=== PATIENT | male | born 1990 | race Caucasian/White ===

== ENCOUNTER 2018-10-12 15:56 | Emergency (ER) | payer BC ==
[~2018-10-12] VITALS: Ht 188 cm; Wt 86.2 kg
[2018-10-12 16:04] VITALS: BP 130/70
--- NOTE | 2018-10-12 16:04 | NUR ---
TO BED # 5 VIA W/C, REPORT GIVEN TO KELLEY SALVADOR
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
--- NOTE | 2018-10-12 16:15 | NUR ---
X RAY AT BEDSIDE.
[2018-10-12] MEDS ORDERED: KETOROLAC 60 MG/2 ML VIAL IM ONE (16:50)
[2018-10-12] MEDS ORDERED: traMADol 50 MG TAB PO ONE (16:50)
--- NOTE | 2018-10-12 17:10 | NUR ---
MOTHER AT BEDSIDE.
--- NOTE | 2018-10-12 17:25 | NUR ---
X RAY AT BEDSIDE.
[2018-10-12 17:59] VITALS: BP 127/83
--- NOTE | 2018-10-12 17:59 | NUR ---
Patient discharged with v/s stable. Written and verbal after care instructions given and explained. Patient alert, oriented and verbalized understanding of instructions. Ambulatory with CRUTCHES All questions addressed prior to discharge. ID band removed. Patient advised to follow up with PMD. Rx of KETOROLAC & TRAMADOL given. Patient educated on indication of medication including possible reaction and side effects. Opportunity to ask questions provided and answered.
== END 2018-10-12 17:59 | disposition home or self-care (01) ==
LOC: MED 15:56
DX: S92.152A Displaced avulsion fracture (chip fracture) of left talus, initial encounter for closed fracture (principal); S92.252A Displaced fracture of navicular [scaphoid] of left foot, initial encounter for closed fracture; Z88.0 Allergy status to penicillin; V03.90XA Pedestrian on foot injured in collision with car, pick-up truck or van, unspecified whether traffic or nontraffic accident, initial encounter; Y93.89 Activity, other specified; Y92.89 Other specified places as the place of occurrence of the external cause; Y99.8 Other external cause status
CPT/HCPCS: 29515; 73590; 73610; 73630; 99283; Q0092; J1885

== ENCOUNTER 2019-01-19 14:44 | Inpatient (IN) | payer BC ==
[~2019-01-19] VITALS: Ht 188 cm; Wt 86.2 kg
[2019-01-19 14:50] VITALS: BP 123/79
--- NOTE | 2019-01-19 14:50 | NUR ---
BIBA FOR "ALCOHOL WITHDRAWALS," MOM CALLED EMS BECAUSE SAW HIM DRINKING A BIG GULP FULL OF VODKA. PT VISIBLY INTOXICATED. UNABLE TO VERBALIZE PAIN. REQUESTING "BANANA PACK" HX: CELIAC DISEASE, ETOH RX: TORADOL, BUSPAR, TRAMADOL
[2019-01-19] MEDS ORDERED: NACL 0.9% 1,000 ML IV ONE (14:55)
[2019-01-19 15:08] LABS: BASOPHILS # (AUTO) 0.1 K/uL (0.00-0.22); BASOPHILS % (AUTO) 0.7 % (0.0-2.0); EOSINOPHILS # (AUTO) 0.1 K/uL (0-0.4); EOSINOPHILS % (AUTO) 0.5 % (0.0-4.0); HEMATOCRIT 52.5 % (36-52); HEMOGLOBIN 18.2 g/dL (12.0-18.0); LYMPHOCYTES # (AUTO) 2.5 K/uL (2.0-11.5); LYMPHOCYTES % (AUTO) 26.3 % (20.5-51.1); MEAN CORPUSCULAR HEMOGLOBIN 30 pg (27-31); MEAN CORPUSCULAR HGB CONC 35 g/dL (33-37); MEAN CORPUSCULAR VOLUME 86.7 fL (80-94); MONOCYTES # (AUTO) 0.4 K/uL (0.8-1.0); MONOCYTES % (AUTO) 4.6 % (1.7-9.3); NEUTROPHILS # (AUTO) 6.4 K/uL (1.8-7.7); NEUTROPHILS % (AUTO) 67.9 % (42.2-75.2); PLATELET COUNT (AUTO) 156 K/uL (140-450); RED BLOOD CELL COUNT(AUTO) 6.06 MIL/uL (4.20-6.10); RED CELL DISTRIBUTION WIDTH 13.6 % (11.6-13.7); WHITE BLOOD COUNT (AUTO) 9.4 K/uL (4.8-10.8)
[2019-01-19] MEDS ORDERED: ONDANSETRON 4 MG/2 ML VIAL IVP ONE (15:25)
[2019-01-19 15:30] LABS: ANION GAP 14.1 (8-16); CARBON DIOXIDE 28.5 mmol/L (21-32); CREATININE 1.1 mg/dL (0.7-1.3); POTASSIUM 3.6 mmol/L (3.5-5.1); TOTAL BILIRUBIN 0.5 mg/dL (0.0-1.0)
[2019-01-19] MEDS ORDERED: DOCUSATE SODIUM 100 MG GELCAP PO PRN (16:05)
[2019-01-19] MEDS ORDERED: ACETAMINOPHEN 325 MG TAB PO PRN (16:05)
[2019-01-19 16:32] LABS: APPEARANCE,URINE CLEAR (CLEAR); BILIRUBIN,URINE NEGATIVE (NEGATIVE); BLOOD, URINE NEGATIVE (NEGATIVE); COLOR,URINE YELLOW (YELLOW); LEUKOCYTE ESTERASE ,URINE NEGATIVE (NEGATIVE); NITRITE, URINE NEGATIVE (NEGATIVE); UGLUCOSE NEGATIVE (NEGATIVE)
[2019-01-19 16:43] LABS: BARBITURATE, URINE NEG. ng/ml (NEG <=200); BENZODIAZEPINE, URINE NEG. ng/mL (NEG <=200); CANNABINOID, URINE NEG. ng/mL (NEG <=50); COCAINE, URINE NEG. ng/mL (NEG <=300); OPIATE, URINE NEG. ng/mL (NEG <=2000); PHENCYCLIDINE SCREEN,URINE NEG. ng/mL (NEG <=25)
--- NOTE | 2019-01-19 16:44 | NUR ---
PT TAKEN TO TELE FLOOR BY MODESTO LUONG AND EMT MILLIE
[2019-01-19 16:45] VITALS: BP 115/73
--- NOTE | 2019-01-19 16:45 | NUR ---
RECEIVED BEDSIDE REPORT FROM ER NURSE. PT STABLE, AWAKE, AND ALERT AND ORIENTED X4. NO SIGNS OF DISTRESS NOTED. DENIES PAIN OR SOB. NO REDNESS, SWELLING, OR INFLAMMATION NOTED ON IV SITE. CALL LARIOS WITHIN REACH. BED IN LOWEST POSITION. SAFETY MEASURES IN PLACE. PLAN OF CARE REVIEWED.
--- NOTE | 2019-01-19 16:45 | NUR ---
Patient will be admitted to care of DR. SIM. Admited to TELE. Will go to room 120A. Belongings list completed. Report to ALLISON PULLIAM RN.
[2019-01-19 17:11] LABS: PROTHROMBIN TIME 8.5 secs (10.8-13.4)
[2019-01-19 17:17] LABS: MAGNESIUM 2.2 mg/dL (1.8-2.4); PHOSPHORUS 2.8 mg/dL (2.5-4.9); THYROID STIMULATING HORMONE 1.24 uIU/mL (0.34-3.74)
[2019-01-19] MEDS ORDERED: HYDROcodone/APAP 5/325 MG 1 TAB TAB PO PRN (17:25)
[2019-01-19] MEDS ORDERED: LORazepam 2 MG/ML VIAL ONE (17:40)
[2019-01-19] MEDS ORDERED: chlordiazePOXIDE 25 MG CAP ONE (17:42)
[2019-01-19] MEDS: LORazepam 2 MG/ML VIAL IM/IVP PRN ×3 (17:45→22:55)
[2019-01-19] MEDS ORDERED: chlordiazePOXIDE 25 MG CAP PO SCH (18:30)
[2019-01-19] MEDS: NACL 0.9% 1,000 ML IV SCH (18:44)
--- NOTE | 2019-01-19 18:50 | NUR ---
ADMINISTERED SCHEDULED MEDICATION AND PRN ATIVAN FOR COMPLAINT OF ANXIETY. PT TOLERATED WELL. Addendum: 01/19/19 at 1957 by Princess Velazquez RN ACTUAL TIME GIVEN FOR PRN ATIVAN IS 565.
[2019-01-19] MEDS ORDERED: MULTIVITAMIN-12 10 ML, THIAMINE 100 MG, FOLIC ACID 1 MG in NACL 0.9% 1,000 ML IV SCH (19:00)
[2019-01-19] MEDS ORDERED: MAG SULF 2000 MG/WATER PREMIX 50 ML IV SCH (19:00)
--- NOTE | 2019-01-19 19:30 | NUR ---
ENDORSED PT TO MODESTO PEDRAZA FOR CONTINUITY OF CARE. PT STABLE, SLEEPING, BUT EASILY AROUSABLE.
--- NOTE | 2019-01-19 19:31 | NUR ---
REPORT RECEIVED FROM AM NURSE AT BEDSIDE. PT IN STABLE CONDITION. AAOX4. INTRODUCED SELF TO PT. BOARD UPDATED. NO COMPLAINTS OF PAIN. NO SOB. AFEBRILE. IV SITE L FA 20G RUNNING NS@100ML/HR PATENT AND INTACT. SKIN WARM, DRY, AND INTACT WITH NO OPEN WOUNDS. BED LOCKED IN LOW POSITION. CALL LARIOS WITHIN REACH. SAFETY PRECAUTIONS IN PLACE. ALL NEEDS MET AT THIS TIME.
[2019-01-19] MEDS: ONDANSETRON 4 MG/2 ML VIAL IM/IVP PRN (19:43)
--- NOTE | 2019-01-19 19:43 | NUR ---
ZOFRAN GIVEN IVP FOR NAUSEA. PT TOLERATED WELL.
[2019-01-19 20:00] VITALS: BP 110/71
--- NOTE | 2019-01-19 20:00 | NUR ---
PT STATES HE FEELS AGITATED. WANTS ATIVAN IVP. PT RECEIVED ATIVAN@1745 WITH AM NURSE AND WILL NOT BE DUE TILL 2144. WILL ASK ME TO INCREASE FREQUENCY. PT STATES HE WANTS TO SPEAK WITH MD. WILL NOTIFY.
--- NOTE | 2019-01-19 20:35 | NUR ---
PATIENT CAME OUT OF HIS ROOM AND COMPLAINED THAT MD HAS NOT SEEN HIM. MD WAS AT NURSING STATION WHEN THIS HAPPENED. MD WENT INTO PATIENTS ROOM TO TALK TO HIM. NEW ORDERS PLACED BY MD INCREASING FREQUENCY OF ATIVAN.
--- NOTE | 2019-01-19 20:44 | NUR ---
ATIVAN GIVEN PT. PT TOLERATED WELL.
[2019-01-19] MEDS ORDERED: MULTIVITAMIN-12 10 ML VIAL IV ONE (20:47)
[2019-01-19] MEDS ORDERED: FOLIC ACID 5 MG/ML SYR ONE (20:47)
[2019-01-19] MEDS ORDERED: LORazepam 2 MG/ML VIAL IM/IVP SCH (21:00)
--- NOTE | 2019-01-19 21:08 | NUR ---
BANANA BAG INFUSING@100ML/HR. PT TOLERATING WELL.
--- NOTE | 2019-01-19 22:10 | NUR ---
PT ASKED ABOUT ATIVAN DOSAGE SAYING THAT HE USUALLY RECEIVES 2MG. EDUCATED PT THAT EVEN THOUGH HE USUALLY RECEIVES 2MG PO OF ATIVAN THAT THE IVP ROUTE IS MORE POTENT AND WORKS BETTER. TOLD PATIENT THAT IT WILL BE DUE IN 30 MINUTES AND TO DISTRACT HIMSELF BY WATCHING TV.
--- NOTE | 2019-01-19 22:55 | NUR ---
ATIVAN GIVEN FOR ALCOHOL WITHDRAWAL PT TOLERATED WELL.
[2019-01-20] VITALS: BP 102/55
[2019-01-20] MEDS: LORazepam 2 MG/ML VIAL IM/IVP PRN ×4 (01:12→15:10)
--- NOTE | 2019-01-20 01:12 | NUR ---
ATIVAN GIVEN FOR ALCOHOL WITHDRAWAL. PT TOLERATED WELL.
[2019-01-20] MEDS: NACL 0.9% 1,000 ML IV SCH ×2 (02:01→11:34)
[2019-01-20] MEDS: ONDANSETRON 4 MG/2 ML VIAL IM/IVP PRN ×2 (03:19→14:10)
--- NOTE | 2019-01-20 03:19 | NUR ---
ZOFRAN GIVEN IVP. PT TOLERATED WELL.
[2019-01-20 04:00] VITALS: BP 127/82
--- NOTE | 2019-01-20 05:39 | NUR ---
ATIVAN GIVEN FOR ALCOHOL WITHDRAWAL. PT TOLERATED WELL.
--- NOTE | 2019-01-20 07:10 | NUR ---
REPORT GIVEN TO AM NURSE AT BEDSIDE. PT IN STABLE CONDITION.
[2019-01-20 07:11] LABS: BASOPHILS % (AUTO) 0.2 % (0.0-2.0); EOSINOPHILS # (AUTO) 0.2 K/uL (0-0.4); EOSINOPHILS % (AUTO) 2.1 % (0.0-4.0); HEMATOCRIT 45.1 % (36-52); HEMOGLOBIN 15.5 g/dL (12.0-18.0); LYMPHOCYTES # (AUTO) 1.9 K/uL (2.0-11.5); LYMPHOCYTES % (AUTO) 25.3 % (20.5-51.1); MEAN CORPUSCULAR HEMOGLOBIN 30 pg (27-31); MEAN CORPUSCULAR HGB CONC 34 g/dL (33-37); MEAN CORPUSCULAR VOLUME 87.2 fL (80-94); MONOCYTES # (AUTO) 0.4 K/uL (0.8-1.0); NEUTROPHILS # (AUTO) 5.1 K/uL (1.8-7.7); NEUTROPHILS % (AUTO) 67.4 % (42.2-75.2); PLATELET COUNT (AUTO) 97 K/uL (140-450); RED BLOOD CELL COUNT(AUTO) 5.17 MIL/uL (4.20-6.10); RED CELL DISTRIBUTION WIDTH 13.3 % (11.6-13.7); WHITE BLOOD COUNT (AUTO) 7.6 K/uL (4.8-10.8)
--- NOTE | 2019-01-20 07:11 | NUR ---
RECEIVED REPORT FROM PIPELAYING FITTER NURSE. PATIENT LYING DOWN IN BED SLEEPING, AROUSABLE BY VOICE. NO DISTRESS NOTED. DENIES ANY PAIN AT THIS TIME. AAOX3, CALM, COOPERATIVE, SKIN COLOR APPROPRIATE TO ETHNICITY, WARM TO TOUCH. SKIN INTACT. IV SITE INTACT, PATENT, AND INFUSING IVF PER MD ORDERS. RESPIRATIONS EVEN, UNLABORED, ON ROOM AIR. REVIEWED PLAN OF CARE WITH PATIENT. PATIENT VERBALIZED UNDERSTANDING. SAFETY MEASURES IN PLACE, CALL LIGHT WITHIN REACH. WILL CONTINUE TO MONITOR.
[2019-01-20 07:36] LABS: ANION GAP 13.6 (8-16); CARBON DIOXIDE 25.6 mmol/L (21-32); CREATININE 0.9 mg/dL (0.7-1.3); POTASSIUM 3.2 mmol/L (3.5-5.1)
[2019-01-20 07:44] LABS: CHOL/HDL RATIO 2.9 (1-4.5)
[2019-01-20 08:00] VITALS: BP 119/87
[2019-01-20] MEDS: chlordiazePOXIDE 25 MG CAP PO SCH ×2 (08:44→13:31)
--- NOTE | 2019-01-20 08:54 | NUR ---
PATIENT LYING DOWN IN BED SLEEPING, AROUSABLE BY VOICE. NO DISTRESS NOTED. DENIES ANY PAIN. SCHEDULED MEDICATIONS DUE GIVEN. WILL CONTINUE TO MONITOR.
[2019-01-20] MEDS ORDERED: chlordiazePOXIDE 25 MG CAP PO SCH (09:00)
[2019-01-20] MEDS ORDERED: FOLIC ACID 1 MG TAB PO SCH (09:00)
[2019-01-20] MEDS ORDERED: THIAMINE 100 MG TAB PO SCH (09:00)
[2019-01-20] MEDS ORDERED: MULTIVITAMIN 1 TAB PO SCH (09:00)
[2019-01-20] MEDS ORDERED: THIAMINE 200 MG/2 ML VIAL IM SCH (09:00)
[2019-01-20] MEDS ORDERED: POTASSIUM CHLORIDE 10 MEQ TABER PO SCH (09:48)
--- NOTE | 2019-01-20 09:53 | NUR ---
PATIENT HAS BEEN SCREENED AND CATEGORIZED MODERATE NUTRITION RISK. PATIENT WILL BE SEEN WITHIN 3-5 DAYS OF ADMISSION. 01/22/19-01/24/[address]
--- NOTE | 2019-01-20 11:27 | NUR ---
PATIENT FEELING ANXIOUS, ATIVAN GIVEN PER MD ORDERS. WILL CONTINUE TO MONITOR.
[2019-01-20 12:00] VITALS: BP 126/89
[2019-01-20] MEDS ORDERED: BENZOCAINE/MENTHOL 1 LOZ MM PRN (13:10)
--- NOTE | 2019-01-20 13:32 | NUR ---
PATIENT WENT TO BATHROOM AND BACK TO BED. NO DISTRESS NOTED. DENIES ANY PAIN. SCHEDULED MEDICATIONS DUE GIVEN. WILL CONTINUE TO MONITOR.
--- NOTE | 2019-01-20 14:12 | NUR ---
PATIENT COMPLAINS OF NAUSEA, NO VOMIT AT THIS TIME. ZOFRAN GIVEN. WILL CONTINUE TO MONITOR.
--- NOTE | 2019-01-20 16:20 | NUR ---
PATIENT MOTHER AT BEDSIDE. BROUGHT PATIENT CIGARETTES AND A DISTANCE LEARNING COORDINATOR. TOLD PATIENT AND MOTHER THAT THIS WAS A NO SMOKING FACILITY. MOTHER SAYS "[facility] ALLOWS IT" IN FRONT OF PATIENT. PATIENT THEN WISHES TO BE TRANSFERRED TO [facility], TOLD PATIENT THAT THERE HAS TO BE MEDICAL REASON FOR A TRANSFER AND SMOKING WAS NOT ONE OF THE REASON. PATIENT WISHES TO LEAVE AMA AT THIS TIME. NOTIFIED DR. MICHELLE MD AT BEDSIDE EXPLAINED RISKS OF LEAVING AMA. PATIENT STILL WISHES TO LEAVE AMA AT THIS TIME. AMA PAPERS SIGNED. PATIENT GOT DRESSED AND ALL BELONGINGS WITH PATIENT. ALL BELONGINGS WITH PATIENT. IV SITE REMOVED WITH MINIMAL BLOOD AND LUMEN COMPLETELY INTACT. ID BANDS REMOVED. ESCORTED PATIENT DOWN TO LOBBY WITH MOTHER WITH STEADY GAIT. PATIENT LEFT AMA AT THIS TIME IN STABLE CONDITION.
--- NOTE | 2019-01-20 16:21 | NUR ---
DOCK CLERK AND CAMP GUARD NOTIFIED AND AWARE OF SITUATION REGARDING PATIENT'S WISHES TO LEAVE AMA.
[2019-01-20] MEDS ORDERED: ONDA4TAB PO (17:11)
[2019-01-20] MEDS ORDERED: LIB25 PO (17:11)
== END 2019-01-20 16:20 | disposition left against medical advice (07) | DRG 894 ==
LOC: MED 14:44 → MTU 16:01
PROVIDERS: ADMIT General Practice; ATTEND General Practice
DX: F10.129 Alcohol abuse with intoxication, unspecified (principal); F41.9 Anxiety disorder, unspecified; F32.9 Major depressive disorder, single episode, unspecified; K90.0 Celiac disease; Z53.21 Procedure and treatment not carried out due to patient leaving prior to being seen by health care provider; E83.51 Hypocalcemia; E87.6 Hypokalemia; Y90.8 Blood alcohol level of 240 mg/100 ml or more; F17.210 Nicotine dependence, cigarettes, uncomplicated; Z88.0 Allergy status to penicillin; Z87.81 Personal history of (healed) traumatic fracture; Z81.1 Family history of alcohol abuse and dependence
CPT/HCPCS: 36415; 71045; 80048; 80053; 80305; 81003; 82150; 83036; 83690; 83735; 83880; 84100; 84443; 84484; 85025; 85610; 85730; 87081; 93005; 96361; 96374; 99285; A9153; G0482; J2060; J2405; J3411; J3475; J3490; J7030; Q0092

== ENCOUNTER 2019-01-21 23:17 | Inpatient (IN) | payer BC ==
[~2019-01-21] VITALS: Ht 188 cm; Wt 91.2 kg
[~2019-01-21 23:17] MED LIST: LIB25 PO; ONDA4TAB PO
[2019-01-21 23:42] VITALS: BP 150/90
--- NOTE | 2019-01-21 23:45 | NUR ---
TO LOBBY A/W BED, MONICA CARTY NOTED
--- NOTE | 2019-01-22 00:16 | NUR ---
PT TO ER BED 10
--- NOTE | 2019-01-22 00:22 | NUR ---
BIB SELF WITH C/O ANXIETY 07/16 AND ALCOHOL WITHDRAWAL. STATES HE HAS BEEN DRINKING VODKA ALL DAY AND HAS ALSO USED NORCO TODAY BUT CAN NOT REMEMBER WHAT TIME. PATIENT STATES HE WAS ADMITTED HERE AND LEFT BUT WISHES HE HAD STAYED. DENIES PAIN AT THIS TIME. DENIES NVD. DENIES FEVER OR SHAKES.
--- NOTE | 2019-01-22 00:49 | NUR ---
VISUAL CHECK MADE. PT AMBULATING WITH STEADY GAIT IN ROOM. ASSISTED BACK TO BED. BEDRAILS UP X2. BED IN LOWEST POSITION. WILL CONTINUE TO MONITOR.
--- NOTE | 2019-01-22 00:58 | NUR ---
PT AMBULATED TO RESTROOM. GAIT STEADY.
--- NOTE | 2019-01-22 01:30 | NUR ---
Pt noted ambulating to restroom. Steady gait.
[2019-01-22] MEDS ORDERED: ONDANSETRON 4 MG ODT PO ONE (01:50)
[2019-01-22] MEDS ORDERED: ONDANSETRON 4 MG ODT ONE (02:03)
--- NOTE | 2019-01-22 02:22 | NUR ---
Dr. Perez evaluating patient at bedside.
[2019-01-22] MEDS ORDERED: NACL 0.9% 1,000 ML IV SCH (02:28)
[2019-01-22] MEDS ORDERED: ONDANSETRON 4 MG/2 ML VIAL IVP ONE (02:30)
[2019-01-22] MEDS ORDERED: LORazepam 2 MG/ML VIAL IVP ONE (02:30)
[2019-01-22 02:46] LABS: BASOPHILS % (AUTO) 0.7 % (0.0-2.0); EOSINOPHILS # (AUTO) 0.2 K/uL (0-0.4); EOSINOPHILS % (AUTO) 2.9 % (0.0-4.0); HEMATOCRIT 44.5 % (36-52); HEMOGLOBIN 15.5 g/dL (12.0-18.0); LYMPHOCYTES # (AUTO) 1.7 K/uL (2.0-11.5); LYMPHOCYTES % (AUTO) 31.8 % (20.5-51.1); MEAN CORPUSCULAR HEMOGLOBIN 30 pg (27-31); MEAN CORPUSCULAR HGB CONC 35 g/dL (33-37); MEAN CORPUSCULAR VOLUME 86.5 fL (80-94); MONOCYTES # (AUTO) 0.3 K/uL (0.8-1.0); MONOCYTES % (AUTO) 5.1 % (1.7-9.3); NEUTROPHILS # (AUTO) 3.2 K/uL (1.8-7.7); NEUTROPHILS % (AUTO) 59.5 % (42.2-75.2); RED BLOOD CELL COUNT(AUTO) 5.15 MIL/uL (4.20-6.10); RED CELL DISTRIBUTION WIDTH 13.4 % (11.6-13.7); WHITE BLOOD COUNT (AUTO) 5.3 K/uL (4.8-10.8)
[2019-01-22] MEDS ORDERED: ONDANSETRON 4 MG/2 ML VIAL ONE (02:50)
[2019-01-22] MEDS ORDERED: LORazepam 2 MG/ML VIAL ONE (02:50)
[2019-01-22 03:01] LABS: ANION GAP 19.4 (8-16); CARBON DIOXIDE 22.7 mmol/L (21-32); POTASSIUM 4.1 mmol/L (3.5-5.1)
[2019-01-22 03:07] LABS: ALBUMIN 3.6 g/dL (3.4-5.0); PLATELET COUNT (AUTO) 96 K/uL (140-450); TOTAL BILIRUBIN 0.2 mg/dL (0.0-1.0)
[2019-01-22] MEDS ORDERED: ACETAMINOPHEN 325 MG TAB PO PRN (03:20)
[2019-01-22] MEDS ORDERED: ONDANSETRON 4 MG/2 ML VIAL IM/IVP PRN (03:20)
[2019-01-22] MEDS ORDERED: DOCUSATE SODIUM 100 MG GELCAP PO PRN (03:20)
[2019-01-22] MEDS ORDERED: HYDROcodone/APAP 7.5/325 MG 1 TAB PO PRN (03:20)
[2019-01-22] MEDS ORDERED: MORPHINE SULFATE 2 MG/ML SYR IVP PRN (03:20)
--- NOTE | 2019-01-22 03:25 | NUR ---
Dr. Sow evaluating patient at bedside.
--- NOTE | 2019-01-22 03:40 | NUR ---
Patient will be admitted to care of MD Sebastien. Admited to [facility]. Will go to room 105B. Belongings list completed. Report to MODESTO Mack.
--- NOTE | 2019-01-22 03:40 | NUR ---
Pt report given to MODESTO Mack. Transfer of care at this time. VSS.
[2019-01-22 03:45] VITALS: BP 122/86
--- NOTE | 2019-01-22 03:45 | NUR ---
RECEIVED REPORT FROM VIDEO EDITING INTERNSHIP FOR CONTINUITY OF CARE. PT IS A/OX4, ON ROOM AIR. PT ABLE TO MAKE NEEDS KNOWN, AND ABLE TO FOLLOW COMMANDS. PT AMBULATES WITH STEADY GAIT. PT SKIN IS INTACT. PT HAS A 20G IV TO LEFT FOREARM, ASYMPTOMATIC AND INTACT. VITAL SIGNS WITHIN NORMAL LIMITS. PT STABLE, DENIES PAIN, NO SIGNS OF DISTRESS NOTED AT THIS TIME. PT POSITIONED FOR COMFORT. BED IN LOWEST POSITION, BED ALARM ON. WILL CONTINUE TO MONITOR. OBTAINED MRSA SWAB AND SENT TO LAB, SEIZURE PRECAUTIONS IN PLACE.
[2019-01-22 03:47] LABS: APPEARANCE,URINE CLEAR (CLEAR); BILIRUBIN,URINE NEGATIVE (NEGATIVE); BLOOD, URINE NEGATIVE (NEGATIVE); COLOR,URINE YELLOW (YELLOW); LEUKOCYTE ESTERASE ,URINE NEGATIVE (NEGATIVE); NITRITE, URINE NEGATIVE (NEGATIVE); PH,URINE 5.5 (5.0-9.0); UGLUCOSE NEGATIVE (NEGATIVE)
[2019-01-22 04:04] LABS: CHOL/HDL RATIO 2.6 (1-4.5); PHOSPHORUS 4.2 mg/dL (2.5-4.9); THYROID STIMULATING HORMONE 1.78 uIU/mL (0.34-3.74)
[2019-01-22] MEDS: NACL 0.9% 1,000 ML IV SCH ×3 (04:15→23:06)
[2019-01-22] MEDS ORDERED: AMITRIPTYLINE 25 MG TAB PO SCH ×2 (04:30→21:00)
[2019-01-22 04:35] LABS: BARBITURATE, URINE NEG. ng/ml (NEG <=200); BENZODIAZEPINE, URINE POS. ng/mL (NEG <=200); CANNABINOID, URINE NEG. ng/mL (NEG <=50); COCAINE, URINE NEG. ng/mL (NEG <=300); OPIATE, URINE NEG. ng/mL (NEG <=2000); PHENCYCLIDINE SCREEN,URINE NEG. ng/mL (NEG <=25)
[2019-01-22 05:02] LABS: PROTHROMBIN TIME 8.4 secs (10.8-13.4)
--- NOTE | 2019-01-22 07:36 | NUR ---
ENDORSED PT TO DAY SHIFT MODESTO HUNT FOR CONTINUITY OF CARE. PT IN STABLE CONDITION.
--- NOTE | 2019-01-22 07:37 | NUR ---
RECEIVED REPORT FROM BLOOD SPLATTER ANALYST NURSE FOR CONTINUITY OF CARE. PT IN STABLE CONDITION. RESPIRATIONS EVEN AND UNLABORED. IV INTACT AND PATENT. SAFETY MEASURES IN PLACE. CALL LIGHT AT BEDSIDE. BED IN LOW POSITION. WILL CONTINUE TO MONITOR.
[2019-01-22 08:00] VITALS: BP 115/71
--- NOTE | 2019-01-22 08:48 | NUR ---
PATIENT HAS BEEN SCREENED AND CATEGORIZED HIGH NUTRITION RISK. PATIENT WILL BE SEEN WITHIN 1-2 DAYS OF ADMISSION. 01/22/19-01/23/[address]
[2019-01-22] MEDS: chlordiazePOXIDE 25 MG CAP PO SCH ×3 (08:53→18:22)
[2019-01-22] MEDS: THIAMINE 100 MG TAB PO SCH (08:53)
[2019-01-22] MEDS: FOLIC ACID 1 MG TAB PO SCH (08:53)
[2019-01-22] MEDS: LORazepam 1 MG TAB PO PRN ×3 (08:54→20:42)
[2019-01-22] MEDS: MULTIVITAMIN/MINERALS 1 TAB PO SCH (08:54)
--- NOTE | 2019-01-22 09:05 | NUR ---
GAVE ORDERED DUE MEDICATIONS AT THIS TIME. GAVE NAUSEA/ANXIETY MEDICATION PER PT REQUEST AT THIS TIME. PT TOLERATED WELL.
[2019-01-22] MEDS ORDERED: MULTIVITAMIN-12 10 ML, THIAMINE 100 MG, MAGNESIUM SULFATE 50% 2,000 MG, FOLIC ACID 1 MG... IV SCH ×5 (11:00)
--- NOTE | 2019-01-22 12:15 | NUR ---
PT LYING IN BED SLEEPING IN STABLE CONDITION. RESPIRATIONS EVEN AND UNLABORED. SAFETY MEASURES IN PLACE. BED IN LOW POSITION. WILL CONTINUE TO MONITOR.
--- NOTE | 2019-01-22 13:36 | NUR ---
01/22/19 RD INITIAL ASSESSMENT COMPLETED PLEASE REFER TO NUTRITION ASSESSMENT UNDER CARE ACTIVITY FOR ESTIMATED NUTRITIONAL NEEDS. 1. CONTINUE REGULAR GLUTEN FREE DIET TOLERATED 2. SOBRIETY EDUCATION HANDOUT WAS LEFT TO THE PATIENT. 3. RD TO FOLLOW-UP 5-7 DAYS, LOW RISK OSCAR TITUS, RD
--- NOTE | 2019-01-22 15:22 | NUR ---
PT LYING IN BED SLEEPING AT THIS TIME. SAFETY MEASURES IN PLACE. BED IN LOW POSITION. WILL CONTINUE TO MONITOR.
[2019-01-22 16:00] VITALS: BP 125/82
--- NOTE | 2019-01-22 17:00 | NUR ---
GAVE ORDERED DUE MEDICATIONS AT THIS TIME. PT TOLERATED WELL. SAFETY MEASURES IN PLACE. BED IN LOW POSITION. WILL CONTINUE TO MONITOR.
--- NOTE | 2019-01-22 18:42 | NUR ---
WILL ENDORSE TO SALES SYSTEMS ENGINEER NURSE FOR CONTINUITY OF CARE. PT IN STABLE CONDITION.
--- NOTE | 2019-01-22 19:05 | NUR ---
RECEIVED ENDORSEMENT FROM AM SHIFT RN; PATIENT A/Ox4, ABLE TO MAKE NEEDS KNOWN, AMBULATORY. NO SOB OR DISTRESS NOTED. WATCHING TV, INTRODUCED SELF, UPDATED BOARD. IV SITE ON LEFT FOREARM, 20 GAUGE, INTACT. SKIN INTACT. BED IN THE LOWEST POSITION, CALL LIGHT WITHIN REACH. INITIAL ASSESSMENT DONE. WILL CONTINUE TO MONITOR.
--- NOTE | 2019-01-22 20:30 | NUR ---
PATIENT COMPLAINED OF 6/10 LEG AND BACK PAIN. WILL MEDICATE ORDERED AND PER PAIN SCALE.
--- NOTE | 2019-01-22 22:30 | NUR ---
PATIENT WATCHING TV. NO DISTRESS NOTED.
[2019-01-23] VITALS: BP 124/67
--- NOTE | 2019-01-23 00:26 | NUR ---
ROUNDS MADE, PATIENT ASLEEP, VISIBLE CHEST RISE AND FALL NOTED.
--- NOTE | 2019-01-23 02:16 | NUR ---
PATIENT ASLEEP, VISIBLE CHEST RISE AND FALL NOTED, SNORING. WILL CONTINUE TO MONITOR.
--- NOTE | 2019-01-23 04:10 | NUR ---
FREQUENT CHECKS MADE. NO DISTRESS NOTED. PATIENT ASLEEP.
--- NOTE | 2019-01-23 07:10 | NUR ---
RECEIVED BEDSIDE REPORT FROM MODESTO WOOTEN. PATIENT SLEEPING AT THIS TIME, CHEST RISE AND FALL VISIBLE, ON ROOM AIR. SKIN INTACT. PATIENT AMBULATORY AND CONTINENT. ON MED SURGE AND STANDARD PRECAUTIONS. IV ON L FA 20 G INFUSING NS AT 100. IV ASYMPTOMATIC, PATENT AND INTACT. BED IN LOW POSITION, CALL LIGHT WITHIN REACH, SIDE RAILS X2 UP. WILL CONTINUE TO MONITOR.
[2019-01-23 07:11] LABS: BASOPHILS % (AUTO) 0.3 % (0.0-2.0); EOSINOPHILS # (AUTO) 0.3 K/uL (0-0.4); HEMATOCRIT 45.7 % (36-52); HEMOGLOBIN 15.7 g/dL (12.0-18.0); LYMPHOCYTES # (AUTO) 2.1 K/uL (2.0-11.5); LYMPHOCYTES % (AUTO) 34.2 % (20.5-51.1); MEAN CORPUSCULAR HEMOGLOBIN 30 pg (27-31); MEAN CORPUSCULAR HGB CONC 34 g/dL (33-37); MEAN CORPUSCULAR VOLUME 88.1 fL (80-94); MONOCYTES # (AUTO) 0.4 K/uL (0.8-1.0); MONOCYTES % (AUTO) 5.9 % (1.7-9.3); NEUTROPHILS # (AUTO) 3.3 K/uL (1.8-7.7); NEUTROPHILS % (AUTO) 54.6 % (42.2-75.2); PLATELET COUNT (AUTO) 94 K/uL (140-450); RED BLOOD CELL COUNT(AUTO) 5.19 MIL/uL (4.20-6.10); RED CELL DISTRIBUTION WIDTH 13.7 % (11.6-13.7); WHITE BLOOD COUNT (AUTO) 6.1 K/uL (4.8-10.8)
[2019-01-23 08:00] VITALS: BP 115/79
[2019-01-23 08:04] LABS: ANION GAP 15.2 (8-16); CREATININE 1.1 mg/dL (0.7-1.3); POTASSIUM 4.2 mmol/L (3.5-5.1)
[2019-01-23 08:11] LABS: MAGNESIUM 2.2 mg/dL (1.8-2.4); PHOSPHORUS 5.3 mg/dL (2.5-4.9)
[2019-01-23] MEDS: MULTIVITAMIN/MINERALS 1 TAB PO SCH (09:35)
[2019-01-23] MEDS: FOLIC ACID 1 MG TAB PO SCH (09:35)
[2019-01-23] MEDS: THIAMINE 100 MG TAB PO SCH (09:35)
[2019-01-23] MEDS: chlordiazePOXIDE 25 MG CAP PO SCH (09:35)
--- NOTE | 2019-01-23 09:37 | NUR ---
ADMINISTERED SCHEDULED MEDS. PATIENT TOLERATED WELL. WILL CONTINUE TO MONITOR.
[2019-01-23] MEDS ORDERED: LIB25 PO (10:09)
[2019-01-23] MEDS ORDERED: CALCIUM ACETATE 667 MG TAB PO SCH (10:30)
[2019-01-23] MEDS ORDERED: AMIT50TA27 PO (10:31)
[2019-01-23] MEDS ORDERED: ELA50 PO (10:33)
[2019-01-23] MEDS: NACL 0.9% 1,000 ML IV SCH (10:40)
[2019-01-23] MEDS ORDERED: AMITRIPTYLINE 50 MG TAB PO SCH (11:00)
--- NOTE | 2019-01-23 11:50 | NUR ---
DISCHARGE INTRUCTIONS GIVEN TO PATIENT. PATIENT INSTRUCTED TO FOLLOW UP WITH PCP WITHIN 5-7 DAYS, TO RETURN TO NEAREST ER WHEN EXPERIENCING SOB, FEVER, PAIN, ETC IMMEDIATELY. PATIENT GIVEN LIST OF NEW MEDICATIONS AND PRESCRIPTION GIVEN FOR LIBRIUM. OTHER MEDICATIONS ELECTRONICALLY SENT TO [facility] AND SHOWN ON PAPER. PATIENT VERBALIZED UNDERSTANDING. PATIENT GIVEN ALCOHOL/SUBSTANCE ABUSE RESOURCES WITH NUMBERS PROVIDED. ANSWERED ALL QUESTIONS AND CONCERNS. PATIENT PICKED UP BY MOTHER. PATIENT WAS IN [place] TO LEAVE AND SIGN DISCHARGE PAPERS. PATIENT REFUSED FLU AND PNA VACCINES. IV AND WRIST BAND REMOVED. IV TIP INTACT.
== END 2019-01-23 11:50 | disposition home or self-care (01) | DRG 56 ==
LOC: MED 23:17 → MTU 01-22 03:18
PROVIDERS: ADMIT General Practice; ATTEND General Practice
DX: G31.2 Degeneration of nervous system due to alcohol (principal); G92 Toxic encephalopathy; F10.239 Alcohol dependence with withdrawal, unspecified; K90.0 Celiac disease; F32.9 Major depressive disorder, single episode, unspecified; F41.9 Anxiety disorder, unspecified; Z88.0 Allergy status to penicillin; F17.210 Nicotine dependence, cigarettes, uncomplicated; Y90.9 Presence of alcohol in blood, level not specified
CPT/HCPCS: 36415; 71045; 80048; 80053; 80305; 81003; 82150; 83690; 83735; 84100; 84443; 84484; 85025; 85610; 85730; 87081; 93005; 96361; 96374; 99285; A9153; G0482; J2060; J2405; J3411; J3475; J3490; J7030; Q0092; Q0162

== ENCOUNTER 2019-02-10 17:47 | Emergency (ER) | payer BC ==
[~2019-02-10] VITALS: Ht 188 cm; Wt 87.1 kg
[~2019-02-10 17:47] MED LIST changes: +AMIT50TA27 PO; +ELA50 PO; -ONDA4TAB PO
[2019-02-10 17:54] VITALS: BP 127/87
--- NOTE | 2019-02-10 17:58 | NUR ---
PT ALEXANDER DARBYS TO BED 11 REPORT TO ASHUTOSH SALVADOR
--- NOTE | 2019-02-10 18:00 | NUR ---
28 Y MALE PT BIB AMBULANCE BLS S/P ALCOHOL WITHDRAWLS X 6 DAYS. STATES "I'M SERIOUS I REALLY WANT TO GET CLEAN THIS TIME.", AMBULATED WITH STEADY GAIT. DENIES CP/SOB. +N/V. AA0X4. VSS AT THIS TIME. CLEAR SPEECH. DENIES PAIN. BED IS DOWN, LOCKED, BED RAIL X 1, ERMD NOTIFIED. HX---CELIAC DISEASE, ANXIETY
[2019-02-10] MEDS ORDERED: NACL 0.9% 1,000 ML IV ONE (18:05)
--- NOTE | 2019-02-10 18:28 | NUR ---
PT UNABLE TO URINATE AT THIS TIME
[2019-02-10 18:35] LABS: PLATELET COUNT (AUTO) 148 K/uL (140-450); RED BLOOD CELL COUNT(AUTO) 5.25 MIL/uL (4.20-6.10); WHITE BLOOD COUNT (AUTO) 4.2 K/uL (4.8-10.8)
[2019-02-10 18:39] LABS: HEMATOCRIT 45.8 % (36-52); HEMOGLOBIN 15.8 g/dL (12.0-18.0); MEAN CORPUSCULAR HEMOGLOBIN 30 pg (27-31); MEAN CORPUSCULAR HGB CONC 34 g/dL (33-37); MEAN CORPUSCULAR VOLUME 87.2 fL (80-94); RED CELL DISTRIBUTION WIDTH 14.3 % (11.6-13.7)
[2019-02-10 19:01] LABS: EOSINOPHILS % (MANUAL) 3 % (0-4); LYMPHOCYTES % (MANUAL) 41 % (20-46); MONOCYTES % (MANUAL) 8 % (5-12)
[2019-02-10 19:07] LABS: BARBITURATE, URINE NEGATIVE ng/ml (NEG <=200); BENZODIAZEPINE, URINE NEGATIVE ng/mL (NEG <=200); CANNABINOID, URINE NEGATIVE ng/mL (NEG <=50); COCAINE, URINE NEGATIVE ng/mL (NEG <=300); OPIATE, URINE NEGATIVE ng/mL (NEG <=2000); PHENCYCLIDINE SCREEN,URINE NEGATIVE ng/mL (NEG <=25)
--- NOTE | 2019-02-10 19:11 | NUR ---
PT REFUSED TO COOPERATE IN EXAMING IV SITE WIDE OPEN NORMAL SALINE ORDER WAS NOT INFUSING. IV FLUIDS STOPPED AND REMOVED FROM IV SITE. PT VERBALLY ABUSIVE, DEMANDING--- SPOKE WITH PT AND PT'S FATHER ABOUT BEHAVIOUR. PT APPRECIATIVE AT END OF CONVERSATION
--- NOTE | 2019-02-10 19:24 | NUR ---
report given to tayo faye
--- NOTE | 2019-02-10 19:30 | NUR ---
PT LYING IN BED, VSS. PT IS CALM AT THIS TIME. COMFORT MEASURES OFFERED PT TOLERATED WELL.
[2019-02-10 19:41] LABS: POTASSIUM 3.5 mmol/L (3.5-5.1); SODIUM SERUM 142 mmol/L (136-145)
[2019-02-10 19:42] LABS: CARBON DIOXIDE 24.5 mmol/L (21-32); CHLORIDE 102 mmol/L (98-107); GFR ARICAN-AMERICAN 114 mL/min (>90); GLUCOSE 103 mg/dL (74-106); UREA NITROGEN, BLOOD 14 mg/dL (7-18)
[2019-02-10 19:46] LABS: ACETAMINOPHEN < 0.5 ug/ml (10-30); ALBUMIN 4.2 g/dL (3.4-5.0); ASPARTATE AMINOTRANSFERASE 40 U/L (15-37); SALICYLATE < 2.8 mg/dL (2.8-20.0); TOTAL BILIRUBIN 0.5 mg/dL (0.0-1.0)
[2019-02-10 21:12] VITALS: BP 127/87
--- NOTE | 2019-02-10 21:12 | NUR ---
Patient discharged with v/s stable. Written and verbal after care instructions given and explained. Patient alert, oriented and verbalized understanding of instructions. Ambulatory with steady gait. All questions addressed prior to discharge. ID band removed. Patient advised to follow up with PMD. Rx of ZOFRAN WAS given. Patient educated on indication of medication including possible reaction and side effects. Opportunity to ask questions provided and answered.
--- NOTE | 2019-02-10 21:15 | NUR ---
SPOKE TO PT FATHER VIA PHONE. LET HIM KNOW PT WAS BEING D/C. AND PT REQUESTED A RIDE HOME. 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 PT FATHER WAS CONCERNED THAT HE WAS STILL NOT RESPONDING. LET FATHER KNOW THAT PT IS STABLE AND ABLE TO WALK W/O ASSISTANCE. PT IS A/O X 4. PT WAS ABLE TO DISCUSS HIS LIFE AND CONCERNS ABOUT ALCOHOL. PT WQAS GIVEN A PACKET WITH RESOURCES REGARDING ALCOHOL AND DRUG USE. PT UNDERSTOOD AND EXCEPTED THE PACKET AND STATED HE WILL CALL THE FACILITY OF HIS CHOICE. NIKUNJ LUGO MADE AWARE.
== END 2019-02-10 21:12 | disposition home or self-care (01) ==
LOC: MED 17:47
DX: F10.239 Alcohol dependence with withdrawal, unspecified (principal); F41.9 Anxiety disorder, unspecified; Z79.899 Other long term (current) drug therapy; Z88.0 Allergy status to penicillin; Y90.8 Blood alcohol level of 240 mg/100 ml or more
CPT/HCPCS: 36415; 80053; 80305; 85025; 93005; 99284; G0480; G0482; J7030

== ENCOUNTER 2019-08-02 18:16 | Emergency (ER) | payer SELFPAY ==
[~2019-08-02] VITALS: Ht 188 cm; Wt 95.3 kg
[2019-08-02 18:17] VITALS: BP 132/78
[2019-08-02] MEDS ORDERED: NACL 0.9% 1,000 ML IV ONE ×2 (19:50→21:25)
[2019-08-02 21:44] LABS: BASOPHILS % (AUTO) 0.5 % (0.0-2.0); EOSINOPHILS # (AUTO) 0.1 K/uL (0-0.4); EOSINOPHILS % (AUTO) 1.5 % (0.0-4.0); HEMATOCRIT 49.2 % (36-52); HEMOGLOBIN 16.6 g/dL (12.0-18.0); LYMPHOCYTES # (AUTO) 2.3 K/uL (2.0-11.5); LYMPHOCYTES % (AUTO) 39.6 % (20.5-51.1); MEAN CORPUSCULAR HEMOGLOBIN 30 pg (27-31); MEAN CORPUSCULAR HGB CONC 34 g/dL (33-37); MEAN CORPUSCULAR VOLUME 88.9 fL (80-94); MONOCYTES # (AUTO) 0.3 K/uL (0.8-1.0); MONOCYTES % (AUTO) 5.5 % (1.7-9.3); NEUTROPHILS # (AUTO) 3.1 K/uL (1.8-7.7); NEUTROPHILS % (AUTO) 52.9 % (42.2-75.2); PLATELET COUNT (AUTO) 130 K/uL (140-450); RED BLOOD CELL COUNT(AUTO) 5.54 MIL/uL (4.20-6.10); RED CELL DISTRIBUTION WIDTH 13.5 % (11.6-13.7); WHITE BLOOD COUNT (AUTO) 5.8 K/uL (4.8-10.8)
[2019-08-02 21:53] LABS: ANION GAP 16.2 (8-16); CARBON DIOXIDE 25.8 mmol/L (21-32); CREATININE 1.1 mg/dL (0.7-1.3); TOTAL BILIRUBIN 0.4 mg/dL (0.0-1.0)
[2019-08-02] MEDS ORDERED: POTASSIUM CHLORIDE 10 MEQ TABER PO ONE (22:25)
[2019-08-03] MEDS ORDERED: MAGNESIUM CHLORIDE 64 MG TABEC PO STA (00:09)
[2019-08-03] MEDS ORDERED: MAGNESIUM OXIDE 400 MG TAB ONE (01:57)
[2019-08-03] MEDS ORDERED: MAGNESIUM OXIDE 400 MG TAB PO ONE (02:05)
[2019-08-03] MEDS ORDERED: ONDANSETRON 4 MG ODT PO ONE (02:05)
[2019-08-03 02:52] VITALS: BP 121/78
[2019-08-03] MEDS ORDERED: MAGNESIUM CHLORIDE 64 MG TABEC PO ONE (09:00)
== END 2019-08-03 02:51 | disposition home or self-care (01) ==
LOC: MED 18:16
DX: F10.129 Alcohol abuse with intoxication, unspecified (principal); E87.6 Hypokalemia; R21 Rash and other nonspecific skin eruption; Z79.899 Other long term (current) drug therapy
CPT/HCPCS: 36415; 80053; 83690; 83735; 85025; 96360; 96361; 99283; J7030; Q0162